=== PATIENT | female | born 1965 | race African-American/Black ===

== ENCOUNTER → 2019-07-27 | Outpatient (CLI) | payer OTHER ==
--- NOTE | 2019-07-27 09:53 | RAD ---
EXAM: Lumbar spine, 2 views; right knee, 2 views. HISTORY: Pain. COMPARISON: None. FINDINGS: Lumbar spine: 2 views of the lumbar spine are obtained. There is no listhesis. The vertebral bodies are normal in height and the disc is are preserved. There is mild endplate remodeling along the inferior aspect of L2. There are embolization coils and clips in the right adnexa. Right knee: 2 views of the right knee are obtained. There is mild medial compartment spurring. There is a small joint effusion. IMPRESSION: 1. Mild endplate remodeling at L2-L3. 2. Mild medial compartment osteoarthritis the right knee with small right knee joint effusion. Electronically signed by: Shabnam Savage MD (07/27/2019 9:50 AM) [id number]
[2019-07-27 09:57] LABS: ALBUMIN 4.1 g/dL (3.4-5.0); ALBUMIN/GLOBULIN RATIO 0.9 (1.0-1.7); CALCIUM 9.6 mg/dL (8.5-10.1); CREATININE 0.8 mg/dL (0.6-1.0); GFR 90.1; POTASSIUM 3.5 mmol/L (3.5-5.1); TOTAL BILIRUBIN 0.6 mg/dL (0.2-1.0); TOTAL PROTEIN 8.6 g/dL (6.4-8.2)
== END | disposition home or self-care (01) ==
LOC: RAD 08:57
PROVIDERS: ATTEND Surgery
DX: M17.11 Unilateral primary osteoarthritis, right knee (principal); M25.461 Effusion, right knee; M54.5 Low back pain
CPT/HCPCS: 36415; 72100; 73560; 80053